=== PATIENT | male | born 1985 | race Caucasian/White ===

== ENCOUNTER 2017-07-08 12:43 | Emergency (ER) | payer MEDICAID ==
[~2017-07-08] VITALS: Ht 185.4 cm; Wt 125.0 kg
[~2017-07-08 12:43] MED LIST: DICY10CA88 PO; MECL-111 PO; NAPR-1154 PO; NO HOME MEDS; ONDA4TAB12 PO
[2017-07-08 13:15] LABS: BASOPHILS # (AUTO) 0.1 X10'3 (0-0.2); EOSINOPHILS # (AUTO) 0.3 X10'3 (0-0.9); HEMATOCRIT 46.3 % (42.0-52.0); HEMOGLOBIN 15.8 g/dl (14.0-17.9); LYMPHOCYTES # (AUTO) 1.6 X10'3 (1.1-4.8); LYMPHOCYTES % (AUTO) 15.5 % (21-51); MEAN CORPUSCULAR HEMOGLOBIN 28.4 PG (27.0-31.0); MEAN CORPUSCULAR HGB CONC 34.1 % (33.0-36.5); MEAN CORPUSCULAR VOLUME 83.2 FL (78-98); MEAN PLATELET VOLUME 8.5 FL (7.4-10.4); MONOCYTES # (AUTO) 0.6 X10'3 (0-0.9); MONOCYTES % (AUTO) 5.7 % (2-12); NEUTROPHILS # (AUTO) 7.7 X10'3 (1.8-7.7); NEUTROPHILS % (AUTO) 74.8 % (42-75); PLATELET COUNT 240 X10'3 (140-440); RED BLOOD COUNT 5.56 X10'6 (4.70-6.10); RED CELL DISTRIBUTION WIDTH 13.1 % (11.5-14.5); WHITE BLOOD COUNT 10.3 X10'3 (4.5-11.0)
[2017-07-08 13:24] LABS: PROTHROMBIN TIME 10.2 SECONDS (9.0-12.0)
[2017-07-08 13:30] LABS: ALANINE AMINOTRANSFERASE 26 U/L (12-78); ALBUMIN 4.2 G/DL (3.4-5.0); ALBUMIN/GLOBULIN RATIO 1.3 (1.1-1.5); ALKALINE PHOSPHATASE 82 IU/L (46-116); ANION GAP 11 (8-16); ASPARTATE AMINO TRANSFERASE 20 U/L (10-37); BILIRUBIN,TOTAL 0.3 MG/DL (0.1-1.0); BLOOD UREA NITROGEN 7 MG/DL (7-18); CALCIUM 9.1 MG/DL (8.5-10.1); CHLORIDE 103 MMOL/L (99-107); CREATININE 0.87 MG/DL (0.60-1.10); GLUCOSE 100 MG/DL (70-104); POTASSIUM 3.5 MMOL/L (3.5-5.1); SODIUM 141 MMOL/L (135-145); TOTAL CARBON DIOXIDE 27.2 MMOL/L (24-32); TOTAL PROTEIN 7.5 G/DL (6.4-8.2); eGFR > 90 ML/MIN
[2017-07-08 14:09] LABS: ETHANOL < 0.010 GM/DL (0.0-0.010); LIPASE 114 U/L (73-393)
[2017-07-08] MEDS ORDERED: dicyclomine 10 MG capsule PO ONE (14:40)
[2017-07-08] MEDS ORDERED: normal saline 1000ML IV soln IVB ONE (14:40)
[2017-07-08] MEDS ORDERED: morphine 4 MG/ML inj SYRINge IV ONE (14:40)
[2017-07-08 14:53] LABS: CLARITY,URINE SLIGHTLY CLOUDY (Clear); COLOR,URINE YELLOW (Yellow); GLUCOSE, URINE NEGATIVE (Neg); KETONES,URINE NEGATIVE (Neg); LEUKOCYTE ESTERASE ,URINE NEGATIVE (Neg); NITRITES, URINE NEGATIVE (Neg); OCCULT BLOOD,URINE NEGATIVE (Neg); PROTEIN,URINE NEGATIVE (Neg); UROBILINOGEN,URINE 0.2 E.U/dL (0.2-1.0)
[2017-07-08 15:07] LABS: UA COLLECTION TYPE URINAL
[2017-07-08 15:09] LABS: MUCUS STRANDS MODERATE /LPF (Neg); SQUAMOUS EPITHELIAL CELL,UR MANY /LPF (FEW)
[2017-07-08 15:10] LABS: BACTERIA,URINE 2+ /HPF (Neg); RBC,URINE 0-2 /HPF (0-2); WBC CLUMPS,URINE MODERATE /HPF (NEGATIVE)
[2017-07-08] MEDS ORDERED: DICY10CA88 PO (16:46)
[2017-07-08 17:04] LABS: OCCULT BLOOD STOOL NEGATIVE (Neg)
[2017-07-08 17:07] VITALS: BP 130/80
== END 2017-07-08 17:10 | disposition home or self-care (01) ==
LOC: ER 12:43
DX: R10.30 Lower abdominal pain, unspecified (principal); R55 Syncope and collapse; J45.909 Unspecified asthma, uncomplicated; F12.10 Cannabis abuse, uncomplicated; Z56.0 Unemployment, unspecified; Z91.040 Latex allergy status; Z79.899 Other long term (current) drug therapy; Z90.49 Acquired absence of other specified parts of digestive tract
CPT/HCPCS: 36415; 74018; 80053; 80320; 81001; 82272; 83690; 85025; 85610; 96361; 96374; 99285; J2270; J7030

== ENCOUNTER 2024-01-13 17:47 | Emergency (ER) | payer MEDICAID ==
[~2024-01-13] VITALS: Ht 188 cm; Wt 153.0 kg
[~2024-01-13 17:47] MED LIST changes: -MECL-111 PO; +MECL-302 PO; +ONDA-243 PO; -ONDA4TAB12 PO
[2024-01-13] MEDS ORDERED: LIDO700A32 TOP (19:28)
[2024-01-13] MEDS ORDERED: CYCL-1 PO (19:28)
[2024-01-13] MEDS ORDERED: PRED20TA PO (19:28)
[2024-01-13] MEDS: ondansetron 4mg rapidly disintigrating tab PO ONE (19:31)
[2024-01-13] MEDS: oxyCODONE/APAP 5-325mg tablet PO ONE (19:32)
[2024-01-13] MEDS: cyclobenzaprine 10mg tablet PO ONE (19:32)
[2024-01-13] MEDS: dexamethasone sod phosphate 10mg/ml inj IM STA (19:33)
[2024-01-13] MEDS: ketorolac trometh 30MG/ML vial 30 MG/ML VIAL IM ONE (19:33)
[2024-01-13 19:40] VITALS: BP 171/96; PULSE 98; RESP 16; TEMP 98; O2SAT 98
== END 2024-01-13 19:42 | disposition home or self-care (01) ==
LOC: ER 17:48
DX: G89.29 Other chronic pain (principal); M54.59 Other low back pain; F12.90 Cannabis use, unspecified, uncomplicated; J45.909 Unspecified asthma, uncomplicated; Z91.040 Latex allergy status; Z79.899 Other long term (current) drug therapy; Z90.49 Acquired absence of other specified parts of digestive tract; Z56.0 Unemployment, unspecified
CPT/HCPCS: 72100; 96372; 99284; J1100

== ENCOUNTER 2024-08-16 16:34 | Emergency (ER) | payer MEDICAID ==
[~2024-08-16] VITALS: Ht 188 cm; Wt 159.1 kg
[~2024-08-16 16:34] MED LIST changes: +CYCL-1 PO; +LIDO-52 TOP
[2024-08-16 16:35] VITALS: TEMP 98.5
--- NOTE | 2024-08-16 17:00 | Physician Documentation ---
History of Present Illness ~ Chief Complaint: Back Pain Stated Complaint: HIP PAIN Time Seen by MD: 20:11 Primary Medical Doctor: [facility] Patient presents to the emergency room with chief complaint of right hip pain. Patient has a complicated medical history in his had previous right hip replacement years ago secondary to some degree of dysplasia. He states that the pain at that time previous to his surgery felt similar. Patient also has significant back pathology with severe stenosis and had a recent injection two days ago in his spine by the hr specialist but states he has experienced no relief since that time. He denies any saddle anesthesia or changes in bladder or bowel habits. He denies lower extremity weakness specifically but does state the right side has significant pain. Denies any falls or unusual activities. He takes Tylenol occasionally for his pain. He avoids NSAIDs secondary to problems with his IBS. He has not had any opioids. He is not on any steroids other than his recent steroid injection. Medication Reconciliation Allergies: Coded Allergies: latex (Verified Allergy, Mild, RASH, 08/16/24) baclofen (Verified Allergy, Unknown, hives, 08/16/24) Scheduled Cyclobenzaprine* (Cyclobenzaprine*), 1 TAB PO HS Dicyclomine Hcl* (Bentyl*), 1 CAP PO TID, (Reported) Dicyclomine Hcl* (Bentyl*), 1 CAP PO BID Lidocaine (Lidoderm), 1 PATCH TOP DAILY Meclizine HCl (Meclizine HCl), 1 TAB PO TID PRN Naproxen (Naprosyn), 1 TAB PO Q12H, (Reported) Scheduled PRN Hydrocodone Bit/Acetaminophen 5/325 MG ([place] 5/325 MG), 1-2 TAB PO Q4-6 hours PRN for pain ONDANSETRON ODT 4mg tablet (Ondansetron Odt), 1 TABLET PO Q6H PRN for nausea/vomiting ONDANSETRON ODT 4mg tablet (Ondansetron Odt), 1 TABLET PO Q6H PRN for nausea/vomiting Miscellaneous Medications Home Med List (No Home Medications), (Reported) Past Medical History Past Medical History: Asthma, *GI/HEPATOBILIARY* Past Surgical History: appendectomy Alcohol Use: Rarely Drug Use: marijuana Lives with: Family Lives In: Home Occupation: unemployed Review of Systems ROS All review of systems negative except as per HPI Physical Exam Physical Exam Vital Signs: Temperature: 98.5, Source: Oral, Heart Rate: 75, Respiratory Rate: 18, BP: 172/108, Pulse Oximetry: 97, Weight: 159.090 Physical Exam General: Patient is awake, alert, oriented x4 in no acute distress Head: Normocephalic and atraumatic. Eyes: Conjunctival normal. EOMI. PERRL. ENT: Mucous membranes moist. Neck: Supple, trachea is midline. Chest: Clear to auscultation bilaterally without rales, rhonchi, or wheezes. There is no accessory muscle use or retractions. Cardiac: RRR without murmurs, gallops, or rubs. Abd: Soft, nondistended, nontender, with normoactive bowel sounds. No guarding, rebound, or rigidity. Extremities: Normal strength. Normal range of motion. No deformities or edema. Progress Results/Orders Results/Orders Orders - MICHAEL CHESTER MD Ct Pelvis (08/16/24 22:30) Completed Orders - MICHAEL CHESTER MD Ct Pelvis (08/16/24 22:30) Morphine 4mg/Ml Inj. (Morphine Inj.) (08/16/24 20:50) Ondansetron Inj. (Zofran 4mg/2ml Vial) (08/16/24 20:50) Ketorolac Trometh 15mg/Ml Vial (Toradol (08/16/24 20:50) Acetaminophen 1,000mg/100ml Iv (Ofirmev (08/16/24 20:50) Orphenadrine Citrate Inj. (Norflex Inj.) (08/16/24 20:50) Medications Received in ER Medications (Trade) Dose Ordered Sig/Rosalba Route PRN Reason Start Time Stop Time Status Last Admin Dose Admin (morphine inj.) 4 mg ONCE ONCE IV 08/16/24 20:50 08/16/24 20:51 DC 08/16/24 21:55 4 MG (Zofran 4mg/2ml vial) 4 mg ONCE ONCE IV 08/16/24 20:50 08/16/24 20:51 DC 08/16/24 21:52 4 MG (Toradol injection) 15 mg ONCE ONCE IV 08/16/24 20:50 08/16/24 20:51 DC 08/16/24 22:00 15 MG Acetaminophen 100 ml @ 400 mls/hr ONCE ONCE IV 08/16/24 20:50 08/16/24 21:04 DC 08/16/24 22:00 400 MLS/HR (Norflex inj.) 60 mg ONCE ONCE IM 08/16/24 20:50 08/16/24 20:51 DC 08/16/24 22:08 60 MG Vital Signs 08/16/24 08/16/24 08/16/24 08/16/24 16:35 18:31 19:40 20:35 Temp 98.5 Pulse 75 64 65 66 Resp 18 15 14 15 B/P (MAP) 172/108 158/97 (117) 166/102 (123) 147/99 (115) Pulse Ox 97 96 97 98 O2 Flow Rate 0 0 0 08/16/24 08/16/24 08/16/24 08/16/24 21:49 21:55 22:00 22:45 Pulse 68 66 Resp 15 15 15 14 B/P (MAP) 150/100 (117) 159/90 (113) Pulse Ox 97 97 O2 Flow Rate 0 0 08/17/24 08/17/24 00:15 01:36 Pulse 65 67 Resp 13 17 B/P (MAP) 140/83 (102) 148/89 Pulse Ox 96 97 O2 Flow Rate 0 Laboratory Tests Test 08/16/24 17:36 White Blood Count 14.4 H Red Blood Count 5.90 Hemoglobin 16.8 Hematocrit 49.7 Mean Corpuscular Volume 84.3 Mean Corpuscular Hemoglobin 28.5 Mean Corpuscular Hemoglobin Concent 33.9 Red Cell Distribution Width 13.7 Platelet Count 287 Mean Platelet Volume 9.1 Neutrophils (%) (Auto) 75.3 H Lymphocytes (%) (Auto) 17.6 L Monocytes (%) (Auto) 6.0 Eosinophils (%) (Auto) 0.8 Basophils (%) (Auto) 0.3 Neutrophils # (Auto) 10.8 H Lymphocytes # (Auto) 2.5 Monocytes # (Auto) 0.9 Eosinophils # (Auto) 0.1 Basophils # (Auto) 0.0 CBC Comment Sodium Level 139 Potassium Level 3.8 Chloride Level 103 Carbon Dioxide Level 31.3 Anion Gap 5 L Blood Urea Nitrogen 10 Creatinine 1.16 H Estimated GFR/1.73 m2 70 BUN/Creatinine Ratio 8.6 L Glucose Level 99 Calcium Level 8.8 Albumin 4.0 Chemistry Comments Medical Decision Making Findings Patient presents to the emergency room with right hip pain as per HPI. Differentials include but are not limited to septic arthritis, bursitis, radicular nerve pain, cauda equina. Patient denies any weakness or bladder or bowel incontinence or saddle anesthesia and he had not feel he was suffering from cauda equina. I suspect he is having exacerbation of his pain secondary from his injection. He is asking to leave. I will give him some pain medications with instructions to follow up with his doctor. ER precautions discussed. CT scan negative for fractures or infectious process. Departure Disposition: HOME / SELF CARE / HOMELESS Impression: Primary Impression: Hip pain Condition: Stable Discharge Instructions: Hip Pain Referrals: NO PRIMARY CARE PROVIDER (PCP) Prescriptions Hydrocodone Bit/Acetaminophen 5/325 MG ([place] 5/325 MG) 5 Mg/325 Mg Tablet 1-2 TAB PO Q4-6 hours PRN for pain, #10 TAB Prov: MICHAEL CHESTER MD 08/17/24 Additional Comment Medical Screen Exam History: This is a 39-year-old male with history of low back pain who presents with new onset of right leg pain and weakness following pain injections in his low back Exam: VITALS: Reviewed and as above. GENERAL: Alert, nontoxic appearing, no apparent distress. RESPIRATORY: No increased work of breathing, no respiratory distress, speaking in full clear sentences MSE performed in triage and patient returned to ED lobby by nursing staff to await available ED room The note accurately reflects work and decisions made by me.BROOKE Gates 08/16/24 17:00 Signature Scribe Signature: No scribe Attestation: The note accurately reflects work and decisions made by me.Michael Chester MD 08/17/24 02:47 ADI THOMPSON Aug 16, 2024 17:00 MICHAEL CHESTER MD Aug 16, 2024 20:16
[2024-08-16 17:51] LABS: ANION GAP 5 (8-16); BLOOD UREA NITROGEN 10 MG/DL (7-18); BUN/CREATININE RATIO 8.6 (10.0-20.0); CALCIUM 8.8 MG/DL (8.5-10.1); CHLORIDE 103 MMOL/L (99-107); CREATININE 1.16 MG/DL (0.60-1.10); GLUCOSE 99 MG/DL (70-104); POTASSIUM 3.8 MMOL/L (3.5-5.1); SODIUM 139 MMOL/L (135-145); TOTAL CARBON DIOXIDE 31.3 MMOL/L (24-32); eCRCL 100 ML/MIN; eGFR 70 ML/MIN
[2024-08-16 17:55] LABS: BASOPHILS % (AUTO) 0.3 % (0-1); EOSINOPHILS # (AUTO) 0.1 X10'3 (0-0.9); EOSINOPHILS % (AUTO) 0.8 % (0-6); HEMATOCRIT 49.7 % (42.0-52.0); HEMOGLOBIN 16.8 g/dl (14.0-17.9); LYMPHOCYTES # (AUTO) 2.5 X10'3 (1.1-4.8); LYMPHOCYTES % (AUTO) 17.6 % (21-51); MEAN CORPUSCULAR HEMOGLOBIN 28.5 PG (27.0-31.0); MEAN CORPUSCULAR HGB CONC 33.9 g/dL (33.0-36.5); MEAN CORPUSCULAR VOLUME 84.3 FL (78-98); MEAN PLATELET VOLUME 9.1 FL (7.4-10.4); MONOCYTES # (AUTO) 0.9 X10'3 (0-0.9); NEUTROPHILS # (AUTO) 10.8 X10'3 (1.8-7.7); NEUTROPHILS % (AUTO) 75.3 % (42-75); PLATELET COUNT 287 X10'3 (140-440); RED CELL DISTRIBUTION WIDTH 13.7 % (11.5-14.5); WHITE BLOOD COUNT 14.4 X10'3 (4.5-11.0)
--- NOTE | 2024-08-16 18:31 | RADIOLOGY REPORT ---
CT CT LUMBAR SPINE Indication: New Weakness and Pain in R Leg EXAM DATE: 08/16/2024 05:50 PM COMPARISON: None TECHNIQUE: CT of the lumbar spine without intravenous contrast. RADIATION DOSE: CTDIvol: 35 mGy, DLP: 1417 mGy*cm FINDINGS: The lumbar vertebral body heights are maintained. Yawi-jh-wwswratr multilevel disc space narrowing. M ild facet hypertrophic changes. Alignment preserved. Anterior osteophytosis L3-4. 3 mm disc protrusion L3-4. 9 mm disc protrusion at L4-5 which compresses upon the thecal sac resulting in severe spinal canal st enosis. This also likely compresses upon the descending bilateral L5 nerve roots, [id number]- right. IMPRESSION: Large disc protrusion at L4-5 measuring approximately 9 mm and compressing upon the thecal sac , resu lting in severe spinal canal stenosis. Recommend MRI of the lumbar spine and neurosurgical consultat ion. This also likely compresses upon the descending L5 nerve roots, [id number]-right.
[2024-08-16] MEDS: ondansetron/PF 4mg/2ml inj IV ONE (21:52)
[2024-08-16] MEDS: morphine 4 MG/ML inj SYRINge IV ONE (21:55)
[2024-08-16] MEDS: ketorolac trometh 15mg/ml vial 15 MG/ML ML IV ONE (22:00)
[2024-08-16] MEDS: acetaminophen 1,000mg/100ml IV 100 ML IV ONE (22:00)
[2024-08-16] MEDS: orphenadrine citrate 60mg/2ml inj. IM ONE (22:08)
[2024-08-17] MEDS ORDERED: HYDR-3965 PO (01:24)
[2024-08-17 01:36] VITALS: BP 148/89; PULSE 67; RESP 17; O2SAT 97
--- NOTE | 2024-08-17 01:39 | RADIOLOGY REPORT ---
History: right hip pain s/p replacement 3 YRS AGO Comparison Study: None Technique: Multidetector spiral CT of the pelvis was performed from iliac crests to pubic symphysis. 100 cc of intravenous contrast was administered during this examination. Portal venous imaging was obtained. Axial, coronal and sagittal multiplanar reformats were performed by the technologist on a separate workstation. Radiation Dose : CT Dose: CTDI volume is 36.88 mGy. Dose-length product is 1598.89 mGy*cm Findings: Visualized bowel: Small bowel and colon are normal in caliber and distribution. The appendix is not visualized; however, no secondary findings of acute appendicitis identified. Ascites: Absent Lymphadenopathy: No pelvic or mesenteric lymphadenopathy. Pelvis Wall and Mesentery: Unremarkable. Vasculature: The visualized abdominal aorta is normal in size and caliber. Abdominal and pelvic vess els demonstrate normal enhancement. Pelvic Organs: Unremarkable Musculoskeletal: No aggressive focal bony lesions, acute fractures or dislocation. Hardware within th e right hip status post arthroplasty without evidence of complication. Bladder: Unremarkable IMPRESSION: 1. No acute pelvic finding. 2. Right hip hardware status post arthroplasty without evidence of complication. END IMPRESSION:
== END 2024-08-17 01:41 | disposition home or self-care (01) ==
LOC: ER 16:35
DX: M25.551 Pain in right hip (principal); F12.90 Cannabis use, unspecified, uncomplicated; J45.909 Unspecified asthma, uncomplicated; Z90.49 Acquired absence of other specified parts of digestive tract; Z91.040 Latex allergy status; Z79.899 Other long term (current) drug therapy; Z56.0 Unemployment, unspecified; Z96.641 Presence of right artificial hip joint; Z88.8 Allergy status to other drugs, medicaments and biological substances
CPT/HCPCS: 36415; 72131; 72193; 80048; 85025; 96365; 96372; 96375; 99285; J0131; J1885; J2270; J2360; J2405

== ENCOUNTER 2024-10-16 08:16 | Emergency (ER) | payer MEDICAID ==
[~2024-10-16] VITALS: Ht 188 cm; Wt 167.0 kg
[2024-10-16 09:27] LABS: MEAN PLATELET VOLUME 9.5 FL (7.4-10.4); RED CELL DISTRIBUTION WIDTH 13.3 % (11.5-14.5)
[2024-10-16 09:37] LABS: CREATININE 1.04 MG/DL (0.60-1.10); TOTAL CARBON DIOXIDE 26.5 MMOL/L (24-32); eCRCL 112 ML/MIN; eGFR 80 ML/MIN
[2024-10-16 10:07] VITALS: TEMP 99.6
[2024-10-16 10:25] LABS: LEUKOCYTE ESTERASE ,URINE NEGATIVE (Neg); NITRITES, URINE NEGATIVE (Neg); OCCULT BLOOD,URINE NEGATIVE (Neg)
[2024-10-16 10:26] LABS: UA COLLECTION TYPE CLN CATCH MIDSTREAM
--- NOTE | 2024-10-16 11:55 | Physician Documentation ---
History of Present Illness ~ Chief Complaint: Abscess Stated Complaint: INFECTED ABCESS Time Seen by MD: 09:07 Primary Medical Doctor: yuki [facility] Mode of Arrival: Ambulatory HPI Patient is seen today with complaints of abscess in the groin/perirectal area. Patient states symptoms started a few days ago and have progressively worsened. Patient states he has felt a little feverish at times but denies any registered fever. Patient has no other concern or complaint at this time. Tetanus Within 5 Years: No Medication Reconciliation Allergies: Coded Allergies: latex (Verified Allergy, Mild, RASH, 10/16/24) baclofen (Verified Allergy, Unknown, hives, 10/16/24) Scheduled Cyclobenzaprine* (Cyclobenzaprine*), 1 TAB PO HS Dicyclomine Hcl* (Bentyl*), 1 CAP PO TID, (Reported) Dicyclomine Hcl* (Bentyl*), 1 CAP PO BID Lidocaine (Lidoderm), 1 PATCH TOP DAILY Meclizine HCl (Meclizine HCl), 1 TAB PO TID PRN Naproxen (Naprosyn), 1 TAB PO Q12H, (Reported) Scheduled PRN ONDANSETRON ODT 4mg tablet (Ondansetron Odt), 1 TABLET PO Q6H PRN for nausea/vomiting ONDANSETRON ODT 4mg tablet (Ondansetron Odt), 1 TABLET PO Q6H PRN for nausea/vomiting Miscellaneous Medications Home Med List (No Home Medications), (Reported) Past Medical History Past Medical History: Asthma, *GI/HEPATOBILIARY* Past Surgical History: appendectomy Alcohol Use: Rarely Drug Use: marijuana Lives with: Family Lives In: Home Occupation: unemployed Review of Systems Constitutional: Denies: chills, fever, weakness Eyes: Denies: pain, blurred vision ENT: Denies: ear pain, nose pain, throat pain, mouth pain Respiratory: Denies: cough, shortness of breath Cardiovascular: Denies: chest pain, palpitations Gastrointestinal: Denies: abdominal pain, nausea, vomiting Genitourinary: Denies: burning, dysuria Male Genitalia: Denies: penile discharge, testicular pain Neurological: Denies: headache, dizziness Musculoskeletal: Denies: pain, swelling Integumentary: Denies: rash, lesions Allergic/Immunologic: Denies: hives, itching Hematologic/Lymphatic: Denies: no symptoms reported Psychiatric: Denies: depression, anxiety Physical Exam Vital Signs: Temperature: 99.6, Source: Temporal, Heart Rate: 99, Respiratory Rate: 16, BP: 126/73, Pulse Oximetry: 99, Weight: 167.000 Oxygen Flow Rate: 0 Physical Exam General: Awake and Alert, no acute distress. HEENT: Conjunctiva pink, Sclera clear, Mucus Membranes moist. Neck: Supple without masses and tenderness. Resp: Unlabored. Lungs clear to auscultation bilaterally. Heart: Regular Rate and rhythm, normal S1 and S2 without murmur, rub or gallop. Rectal: Patient on exam does have induration and swelling and erythema and t enderness to palpation of what appears to be a forming abscess in the perirectal region but does not appear to involve the wall of the rectum. Area is significantly tender to palpation. I do not currently appreciate any fluctuant mass. Extremities: No cyanosis,clubbing or edema. Skin: Warm and Dry. Progress Results/Orders Results/Orders Vital Signs 10/16/24 10/16/24 10/16/24 10/16/24 08:20 08:52 08:52 10:07 Temp 97.6 99.6 99.6 Pulse 113 100 100 Resp 18 11 20 23 B/P (MAP) 168/93 145/85 (105) 131/86 (101) Pulse Ox 94 97 93 O2 Flow Rate 0 0 10/16/24 11:21 Pulse 99 Resp 16 B/P (MAP) 126/73 (90) Pulse Ox 99 O2 Flow Rate 0 Laboratory Tests Test 10/16/24 08:51 10/16/24 09:58 White Blood Count 7.5 Red Blood Count 5.22 Hemoglobin 15.3 Hematocrit 43.7 Mean Corpuscular Volume 83.7 Mean Corpuscular Hemoglobin 29.3 Mean Corpuscular Hemoglobin Concent 35.1 Red Cell Distribution Width 13.3 Platelet Count 192 Mean Platelet Volume 9.5 Neutrophils (%) (Auto) 88.1 H Lymphocytes (%) (Auto) 3.5 L Monocytes (%) (Auto) 6.0 Eosinophils (%) (Auto) 1.7 Basophils (%) (Auto) 0.7 Neutrophils # (Auto) 6.6 Lymphocytes # (Auto) 0.3 L Monocytes # (Auto) 0.5 Eosinophils # (Auto) 0.1 Basophils # (Auto) 0.1 CBC Comment Sodium Level 139 Potassium Level 3.1 L Chloride Level 101 Carbon Dioxide Level 26.5 Anion Gap 12 Blood Urea Nitrogen 7 Creatinine 1.04 Estimated GFR/1.73 m2 80 BUN/Creatinine Ratio 6.7 L Glucose Level 120 H Lactic Acid Level 2.0 Calcium Level 8.5 Total Bilirubin 0.5 Aspartate Amino Transf (AST/SGOT) 24 Alanine Aminotransferase (ALT/SGPT) 38 Alkaline Phosphatase 75 Total Protein 6.9 Albumin 3.6 Globulin 3.3 Albumin/Globulin Ratio 1.1 Procalcitonin 0.07 Chemistry Comments Urine Specimen Description Cln catch midstream Urine Color Yellow Urine Clarity Clear Urine pH 7.0 Urine Specific [place] 1.010 Urine Protein Negative Urine Glucose (UA) Negative Urine Ketones Negative Urine Occult Blood Negative Urine Nitrite Negative Urine Bilirubin Negative Urine Urobilinogen 0.2 Urine Leukocyte Esterase Negative Urine Culture Indicated Not ind Volume Urine Centrifuged 10 ml Urine Comment Microbiology Date/Time Source Procedure Growth Status 10/16/24 09:03 Blood Arm Left Blood Culture - Preliminary NEGATIVE (LESS THAN 24 HOURS) Resulted Medical Decision Making Findings Patient is seen today with complaints of abscess in the groin/perirectal area. Patient states symptoms started a few days ago and have progressively worsened. Patient states he has felt a little feverish at times but denies any registered fever. Patient has no other concern or complaint at this time. Patient was given IV fluids, Toradol 30 mg IV, Tylenol 1000 mg IV, Bactrim DS tablet by mouth. Patient was sent home on Bactrim DS with Tylenol ibuprofen as needed. Patient will follow up with primary care in 2-5 days if no better as needed sooner. Return to ED with any worsening, concerning or changing symptom s. Departure Disposition: 01 HOME / SELF CARE / HOMELESS Impression: Primary Impression: Abscess Condition: Improved Discharge Instructions: Abscess, Care After Additional Instructions: Patient was given IV fluids, Toradol 30 mg IV, Tylenol 1000 mg IV, Bactrim DS tablet by mouth. Patient was sent home on Bactrim DS with Tylenol ibuprofen as needed. Patient will follow up with primary care in 2-5 days if no better as needed sooner. Return to ED with any worsening, concerning or changing symptoms. Referrals: NO PRIMARY CARE PROVIDER (PCP) Prescriptions Acetaminophen (Tylenol Extra Strength) 500 Mg Tablet 2 TAB PO Q6H PRN PRN for pain or fever for 7 Days, #56 TAB Prov: MENA HER 10/16/24 Ibuprofen (Ibuprofen) 800 Mg Tablet 1 TAB PO Q8H for pain for 10 Days, #30 TAB 0 Refills Prov: MENA HER 10/16/24 Sulfamethoxazole/Trimethoprim (Bactrim Ds Tablet) 800 Mg-160 Mg Tablet 1 TAB PO Q12H for 10 Days, #20 TAB Prov: MENA HER 10/16/24 Signature Scribe Signature: No scribe Attestation: No scribe MENA HER Oct 16, 2024 11:55
[2024-10-16] MEDS ORDERED: SULF1TAB49 PO (11:56)
[2024-10-16] MEDS ORDERED: ACET-1025 PO (11:57)
[2024-10-16] MEDS ORDERED: IBUP-1986 PO (11:57)
[2024-10-16] MEDS: normal saline 1000ml 1,000 ML IV STA (12:13)
[2024-10-16] MEDS: ketorolac trometh 30MG/ML vial 30 MG/ML VIAL IV STA (12:15)
[2024-10-16] MEDS: acetaminophen 1,000mg/100ml IV 100 ML IV STA (12:15)
[2024-10-16] MEDS: sulfamethoxazole/trimethoprim DS (800/160mg) tablet PO STA (12:17)
[2024-10-16 12:42] VITALS: BP 111/66; PULSE 91; RESP 16; O2SAT 98
== END 2024-10-16 12:47 | disposition home or self-care (01) ==
LOC: ER 08:17
DX: L02.214 Cutaneous abscess of groin (principal); J45.909 Unspecified asthma, uncomplicated; Z91.040 Latex allergy status; Z88.8 Allergy status to other drugs, medicaments and biological substances; Z90.49 Acquired absence of other specified parts of digestive tract; Z79.899 Other long term (current) drug therapy; Z56.0 Unemployment, unspecified
CPT/HCPCS: 36415; 80053; 81003; 83605; 84145; 85025; 87040; 96361; 96374; 96375; 99285; J0131; J1885; J7030; A6446; A6449

== ENCOUNTER 2025-01-29 11:42 | Emergency (ER) | payer MEDICAID ==
[~2025-01-29] VITALS: Ht 188 cm; Wt 153.9 kg
[~2025-01-29 11:42] MED LIST changes: +IBUP-1986 PO
[2025-01-29 12:24] LABS: MEAN PLATELET VOLUME 9.3 FL (7.4-10.4); RED CELL DISTRIBUTION WIDTH 13.8 % (11.5-14.5)
[2025-01-29 12:34] LABS: CREATININE 1.11 MG/DL (0.60-1.10); TOTAL CARBON DIOXIDE 29.1 MMOL/L (24-32); eCRCL 105 ML/MIN; eGFR 74 ML/MIN
[2025-01-29 13:39] LABS: LEUKOCYTE ESTERASE ,URINE NEGATIVE (Neg); NITRITES, URINE NEGATIVE (Neg); OCCULT BLOOD,URINE NEGATIVE (Neg)
[2025-01-29 13:43] LABS: UA COLLECTION TYPE CLN CATCH MIDSTREAM
[2025-01-29 14:09] VITALS: TEMP 97.1
--- NOTE | 2025-01-29 14:39 | Physician Documentation ---
History of Present Illness Chief Complaint: Abdominal Pain Stated Complaint: R SIDED ABD PAIN Primary Medical Doctor: yuki man [facility] HPI This is a 39-year-old male who presents with right lower quadrant abdominal pain worse with certain movements and coughing, patient reports history of appendectomy in the area. Patient reports no fever, chills, other systemic symptoms and reports no vomiting or diarrhea. Medication Reconciliation Allergies: Coded Allergies: latex (Verified Allergy, Mild, RASH, 01/29/25) baclofen (Verified Allergy, Unknown, hives, 01/29/25) Scheduled Cyclobenzaprine* (Cyclobenzaprine*), 1 TAB PO HS Dicyclomine Hcl* (Bentyl*), 1 CAP PO TID, (Reported) Dicyclomine Hcl* (Bentyl*), 1 CAP PO BID Ibuprofen (Ibuprofen), 1 TAB PO Q8H Lidocaine (Lidoderm), 1 PATCH TOP DAILY Meclizine HCl (Meclizine HCl), 1 TAB PO TID PRN Naproxen (Naprosyn), 1 TAB PO Q12H, (Reported) Scheduled PRN ONDANSETRON ODT 4mg tablet (Ondansetron Odt), 1 TABLET PO Q6H PRN for nausea/vomiting ONDANSETRON ODT 4mg tablet (Ondansetron Odt), 1 TABLET PO Q6H PRN for nausea/vomiting Miscellaneous Medications Home Med List (No Home Medications), (Reported) Past Medical History Past Medical History: Asthma, *GI/HEPATOBILIARY* Past Surgical History: appendectomy Alcohol Use: Rarely Drug Use: marijuana Lives with: Family Lives In: Home Occupation: unemployed Review of Systems ROS As stated above in the HPI, otherwise all systems are reviewed and negative. Physical Exam Vital Signs: Temperature: 97.1, Source: Temporal, Heart Rate: 84, Respiratory Rate: 12, BP: 162/110, Pulse Oximetry: 99, Weight: 153.900 Oxygen Flow Rate: 0 Physical Exam VITALS: Reviewed and as above. GENERAL: Alert, nontoxic appearing, no apparent distress. RESPIRATORY: No increased work of breathing, no respiratory distress, speaking in full clear sentences SKIN: Skin of abdomen no ecchymosis, erythema, or visible bulging Progress Results/Orders Results/Orders Vital Signs 01/29/25 01/29/25 11:48 14:09 Temp 97.1 97.1 Pulse 77 84 Resp 12 12 B/P (MAP) 183/116 162/110 (127) Pulse Ox 98 99 O2 Flow Rate 0 0 Laboratory Tests Test 01/29/25 12:11 01/29/25 13:31 White Blood Count 5.4 Red Blood Count 6.06 Hemoglobin 18.2 *H Hematocrit 52.6 H Mean Corpuscular Volume 86.7 Mean Corpuscular Hemoglobin 30.0 Mean Corpuscular Hemoglobin Concent 34.6 Red Cell Distribution Width 13.8 Platelet Count 256 Mean Platelet Volume 9.3 Neutrophils (%) (Auto) 55.0 Lymphocytes (%) (Auto) 32.4 Monocytes (%) (Auto) 7.9 Eosinophils (%) (Auto) 3.1 Basophils (%) (Auto) 1.6 H Neutrophils # (Auto) 3.0 Lymphocytes # (Auto) 1.8 Monocytes # (Auto) 0.4 Eosinophils # (Auto) 0.2 Basophils # (Auto) 0.1 CBC Comment Sodium Level 139 Potassium Level 3.8 Chloride Level 102 Carbon Dioxide Level 29.1 Anion Gap 8 Blood Urea Nitrogen 10 Creatinine 1.11 H Estimated GFR/1.73 m2 74 BUN/Creatinine Ratio 9.0 L Glucose Level 102 Calcium Level 8.6 Total Bilirubin 0.7 Aspartate Amino Transf (AST/SGOT) 28 Alanine Aminotransferase (ALT/SGPT) 59 Alkaline Phosphatase 81 Total Protein 8.1 Albumin 4.2 Globulin 3.9 Albumin/Globulin Ratio 1.1 Lipase 28 Chemistry Comments Urine Specimen Description Cln catch midstream Urine Color Dark yellow Urine Clarity Clear Urine pH 7.0 Urine Specific [place] 1.020 Urine Protein Negative Urine Glucose (UA) Negative Urine Ketones Trace H Urine Occult Blood Negative Urine Nitrite Negative Urine Bilirubin Small Urine Urobilinogen 1.0 Urine Leukocyte Esterase Negative Urine Culture Indicated Not ind Volume Urine Centrifuged 10 ml Urine Comment Medical Decision Making Additional information obtaine: N/A Findings MSE performed in triage and patient returned to ED lobby by nursing staff to await available ED room. See physician's note for remainder of chart. Differential Dx:Considerations: Diverticular disease, Hernia, Inflammatory BD, Urinary obstruction, Urinary tract infection, Urolithiasis Departure Disposition: 30 STILL A PATIENT Impression: Primary Impression: Abdominal pain Qualified Codes: R10.31 - Right lower quadrant pain Referrals: NO PRIMARY CARE PROVIDER (PCP) Signature Scribe Signature: No scribe Attestation: The note accurately reflects work and decisions made by me.BROOKE Gates 01/30/25 13:07 ADI THOMPSON Jan 29, 2025 14:39
--- NOTE | 2025-01-29 15:14 | Physician Documentation ---
History of Present Illness General Chief Complaint: Abdominal Pain Stated Complaint: R SIDED ABD PAIN Time Seen by MD: 14:57 Primary Medical Doctor: [facility] Source: patient Mode of Arrival: POV, Ambulatory History of Present Illness Initial Comments 39 y/o M with PMH of appendicitis s/p appendectomy in 2016 presenting with RLQ tenderness. Associated with a "bulge" when coughing. States his pain is a constant 8/10, but becomes 10/10 with radiation to the back when he coughs. Bending over, straining, and coughing aggravate the pain, he has tried Tylenol and heating pads with minimal relief. He is still having regular, well-formed bowel movements. Denies nausea, vomiting, diarrhea, fever, chills, urinary complaints. Medication Reconciliation Allergies: Coded Allergies: latex (Verified Allergy, Mild, RASH, 01/29/25) baclofen (Verified Allergy, Unknown, hives, 01/29/25) Scheduled Cyclobenzaprine* (Cyclobenzaprine*), 1 TAB PO HS Dicyclomine Hcl* (Bentyl*), 1 CAP PO TID, (Reported) Dicyclomine Hcl* (Bentyl*), 1 CAP PO BID Ibuprofen (Ibuprofen), 1 TAB PO Q8H Lidocaine (Lidoderm), 1 PATCH TOP DAILY Meclizine HCl (Meclizine HCl), 1 TAB PO TID PRN Naproxen (Naprosyn), 1 TAB PO Q12H, (Reported) Scheduled PRN ONDANSETRON ODT 4mg tablet (Ondansetron Odt), 1 TABLET PO Q6H PRN for nausea/vomiting ONDANSETRON ODT 4mg tablet (Ondansetron Odt), 1 TABLET PO Q6H PRN for nausea/vomiting Miscellaneous Medications Home Med List (No Home Medications), (Reported) Past Medical History Past Medical History: Asthma, *GI/HEPATOBILIARY*, Spine Compression (spinal stenosis, pending surgery) Other Past Medical History: IBS Past Surgical History: appendectomy, orthopedic surgeries (hip replacement) Smoking: Cigarettes (1/4 pack per day) Alcohol Use: Rarely Drug Use: marijuana Lives with: Family Lives In: Home Occupation: unemployed Review of Systems All Other Systems at this time: Reviewed and Negative Physical Exam Physical Exam Vital Signs: Temperature: 97.1, Source: Temporal, Heart Rate: 84, Respiratory Rate: 12, BP: 162/110, Pulse Oximetry: 99, Weight: 153.900 Oxygen Flow Rate: 0 Physical Exam VITALS: Reviewed and as above. GENERAL: Alert, in mild distress. HEENT: Normocephalic, atraumatic, PERRL, EOMI, dry mucosa, no erythema GI: Bowels sounds present, RLQ tender to palpation, unclear if mass present on cough d/t body habitus BACK: No CVA tenderness, or swelling MUSCULOSKELETAL No deformities, no edema SKIN: Warm and dry, no rash NEURO: Oriented x4, No motor or sensory deficit PSYCH: Normal mood and affect, no agitation Progress Results/Orders Results/Orders Orders - OHNICHOLAS CONTI MD Ct Abdomen Pelvis (01/29/25 16:25) Completed Orders - NICHOLAS KEYES MD Urinalysis, Cult If Indicated (01/29/25 11:54) Cbc/Diff (01/29/25 11:54) Lipase (01/29/25 11:54) CMP (01/29/25 11:54) Ct Abdomen Pelvis (01/29/25 16:25) Laboratory Tests Test 01/29/25 12:11 01/29/25 13:31 White Blood Count 5.4 Red Blood Count 6.06 Hemoglobin 18.2 *H Hematocrit 52.6 H Mean Corpuscular Volume 86.7 Mean Corpuscular Hemoglobin 30.0 Mean Corpuscular Hemoglobin Concent 34.6 Red Cell Distribution Width 13.8 Platelet Count 256 Mean Platelet Volume 9.3 Neutrophils (%) (Auto) 55.0 Lymphocytes (%) (Auto) 32.4 Monocytes (%) (Auto) 7.9 Eosinophils (%) (Auto) 3.1 Basophils (%) (Auto) 1.6 H Neutrophils # (Auto) 3.0 Lymphocytes # (Auto) 1.8 Monocytes # (Auto) 0.4 Eosinophils # (Auto) 0.2 Basophils # (Auto) 0.1 CBC Comment Sodium Level 139 Potassium Level 3.8 Chloride Level 102 Carbon Dioxide Level 29.1 Anion Gap 8 Blood Urea Nitrogen 10 Creatinine 1.11 H Estimated GFR/1.73 m2 74 BUN/Creatinine Ratio 9.0 L Glucose Level 102 Calcium Level 8.6 Total Bilirubin 0.7 Aspartate Amino Transf (AST/SGOT) 28 Alanine Aminotransferase (ALT/SGPT) 59 Alkaline Phosphatase 81 Total Protein 8.1 Albumin 4.2 Globulin 3.9 Albumin/Globulin Ratio 1.1 Lipase 28 Chemistry Comments Urine Specimen Description Cln catch midstream Urine Color Dark yellow Urine Clarity Clear Urine pH 7.0 Urine Specific [place] 1.020 Urine Protein Negative Urine Glucose (UA) Negative Urine Ketones Trace H Urine Occult Blood Negative Urine Nitrite Negative Urine Bilirubin Small Urine Urobilinogen 1.0 Urine Leukocyte Esterase Negative Urine Culture Indicated Not ind Volume Urine Centrifuged 10 ml Urine Comment EKG/XRAY/CT/US/VASC/MRI CT : Impression Patient: JONAS PÉREZ Medical Record: [id number] [facility] : 1985, Age: 39 Sex: Male Location: ER Patient Status: [facility] ER Service Date/Time: 01/29/251624 Ordering Physician: NICHOLAS KEYES MD Exam: CT ABDOMEN PELVIS Exam: CT CT ABDOMEN PELVIS History: abd pain COMPARISON: CT CT PELVIS W/ IV CONTRAST on DOS: 08/16/24 Technique: Multidetector spiral CT of the abdomen and pelvis was performed from lung bases to pubic symphysis. Intravenous contrast was administered during this examination. Portal venous imaging was obtained. Axial, coronal and sagittal multiplanar reformats were performed by the technologist on a separate workstation. Radiation Dose : 1. Abdomen/Pelvis: CTDIvol 36.18 mGy, DLP 2221.49 mGy*cm. Findings: Lung Bases: No acute or significant lung base finding. Normal heart size. No pleural or pericardial effusion. Liver: The liver is normal in size. No focal lesions. Normal hepatic vascular enhancement. Gallbladder and Biliary Tree: Unremarkable Spleen: Unremarkable Pancreas: Unremarkable Adrenal Glands: Unremarkable Kidneys: Unremarkable Bladder: Unremarkable Bowel: The stomach is grossly normal in appearance. Small bowel and colon are normal in caliber and distribution. Status post appendectomy. Ascites: Absent Lymphadenopathy: No mesenteric, retroperitoneal or periportal lymphadenopathy. Abdominal Wall and Mesentery: Unremarkable. Vasculature: The visualized abdominal aorta is normal in size and caliber. Abdominal and pelvic vessels demonstrate normal enhancement. Pelvic Organs: Normal prostate Musculoskeletal: No aggressive focal bony lesions, acute fractures or dislocation. Intact total right hip arthroplasty. IMPRESSION: No acute abdominal or pelvic finding. Appendectomy Radiation optimization: All CT scans at this facility use at least one of these dose optimization techniques: automated exposure control mA and/or kV adjustment per patient size (includes targeted exams where dose is matched to clinical indication) or iterative reconstruction. Electronically Signed by:MARY BARROSO MD Date & Time: 01/29/251704 Dictated by: MARY BARROSO MD Dictation date and time: 01/29/251704 Primary Care Provider: NO PRIMARY CARE PROVIDER cc: NICHOLAS KEYES MD ~ Medical Decision Making Additional information obtaine: old records Findings 39-year-old male complains of bulging to the right abdomen he has a benign exam the CT scan was unremarkable there is no evidence of hernia or other pathology a CT scan was reviewed by me it showed no hernia normal-appearing bony structures and soft tissue was well as normal and appearing internal organs. I have reviewed the radiologist's interpretation as well. The patient will be advised to follow up as an outpatient the patient has prior hospitalizations has been reviewed the patient's pulse oximetry was interpreted as adequate normal. The patient's labs were reviewed Differential Diagnosis Hernia, colitis, abdominal wall contusion, abdominal wall strain Departure Time of Disposition: 17:22 Disposition: 01 HOME / SELF CARE / HOMELESS Impression: Primary Impression: Abdominal pain Qualified Codes: R10.31 - Right lower quadrant pain Discharge Instructions: Abdominal Pain (Nonspecific) Referrals: NO PRIMARY CARE PROVIDER (PCP) Signature Scribe Signature: no scribe Attestation: The note accurately reflects work and decisions made by me.Nicholas Keyes MD 02/03/25 12:06 NICHOLAS KEYES MD Jan 29, 2025 15:14
--- NOTE | 2025-01-29 17:08 | RADIOLOGY REPORT ---
Exam: CT CT ABDOMEN PELVIS History: abd pain COMPARISON: CT CT PELVIS W/ IV CONTRAST on DOS: 08/16/24 Technique: Multidetector spiral CT of the abdomen and pelvis was performed from lung bases to pubic symphysis. Intravenous contrast was administered during this examination. Portal venous imaging was obtained. Axial, coronal and sagittal multiplanar reformats were performed by the technologist on a separate workstation. Radiation Dose : 1. Abdomen/Pelvis: CTDIvol 36.18 mGy, DLP 2221.49 mGy*cm. Findings: Lung Bases: No acute or significant lung base finding. Normal heart size. No pleural or pericardial effusion. Liver: The liver is normal in size. No focal lesions. Normal hepatic vascular enhancement. Gallbladder and Biliary Tree: Unremarkable Spleen: Unremarkable Pancreas: Unremarkable Adrenal Glands: Unremarkable Kidneys: Unremarkable Bladder: Unremarkable Bowel: The stomach is grossly normal in appearance. Small bowel and colon are normal in caliber and distribution. Status post appendectomy. Ascites: Absent Lymphadenopathy: No mesenteric, retroperitoneal or periportal lymphadenopathy. Abdominal Wall and Mesentery: Unremarkable. Vasculature: The visualized abdominal aorta is normal in size and caliber. Abdominal and pelvic vessels demonstrate normal enhancement. Pelvic Organs: Normal prostate Musculoskeletal: No aggressive focal bony lesions, acute fractures or dislocation. Intact total right hip arthroplasty. IMPRESSION: No acute abdominal or pelvic finding. Appendectomy Radiation optimization: All CT scans at this facility use at least one of these dose optimization techniques: automated exposure control mA and/or kV adjustment per patient size (includes targeted exams where dose is matched to clinical indication) or iterative reconstruction.
[2025-01-29 17:20] VITALS: BP 131/82; PULSE 72; RESP 14; O2SAT 95
== END 2025-01-29 17:38 | disposition home or self-care (01) ==
LOC: ER 11:43
DX: R10.31 Right lower quadrant pain (principal); F12.90 Cannabis use, unspecified, uncomplicated; Z91.040 Latex allergy status; Z90.49 Acquired absence of other specified parts of digestive tract; Z79.899 Other long term (current) drug therapy; Z56.0 Unemployment, unspecified
CPT/HCPCS: 36415; 74176; 80053; 81003; 83690; 85025; 99284; 99285